=== PATIENT | male | born 1955 | race Caucasian/White ===

== ENCOUNTER 2020-05-02 05:12 | Emergency (ER) | payer OTHER, SELFPAY ==
[2020-05-02 05:12] VITALS: BP 135/85; PULSE 105; RESP 16; TEMP 36.4; O2SAT 92; BMI 18.8
--- NOTE | 2020-05-02 05:15 | ECG_ITS ---
APPROVED REPORT Exam: Resting ECG HR:100 bpm ECG Measurements Heart Rate 100 AXES QRSd 86 QRS 66 QT 354 T 67 QTc 456 <Conclusion> Accelerated Junctional rhythm Nonspecific ST abnormality Abnormal ECG Electronically signed by : Enrico Kim, 05/04/2020 06:29:41
[2020-05-02 05:18] VITALS: BMI 18.8
--- NOTE | 2020-05-02 05:19 | CT_ITS ---
PROCEDURE: CT HEAD/BRAIN WO CON CLINICAL INDICATION: unable to move lower extremities Unable to walk, unable to use lower extremities COMPARISON: No exams were available for comparison TECHNIQUE: Axial images obtained. All CT scans at the facility use one or more dose reduction, viz: automated exposure control, ma/kV adjustment per patient size (including targeted exams where dose is matched to indication, i.e. head), or iterative reconstruction technique. FINDINGS: No midline shift, mass effect, intracranial hemorrhage, hydrocephalus, or extra-axial fluid collection is evident. The calvarium has an unremarkable appearance. 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 No sinus air-fluid level. IMPRESSION: No acute intracranial finding Dictated by: Abdi Ospina MD 05/02/2020 06:20 Abdi Ospina MD in [facility] 05/02/2020 06:20
--- NOTE | 2020-05-02 05:24 | CT_ITS ---
PROCEDURE: CT CERVICAL SPINE WO CON CLINICAL INDICATION: BLE WEAKNESS,ABSENT RECTAL TONE Right upper lobe mass, bilateral lower extremity weakness COMPARISON: No exams were available for comparison TECHNIQUE: Axial images obtained with sagittal and coronal reformats. All CT scans at the facility use one or more dose reduction, viz: automated exposure control, ma/kV adjustment per patient size (including targeted exams where dose is matched to indication, i.e. head), or iterative reconstruction technique. Axial spiral CT scanning performed of the cervical spine beginning at the base of the skull and continuing to the upper T-spine. 3-D multiplanar reconstruction with 3-D manipulation of volumetric data set in image rendering was completed by the radiologist and/or technologist with the supervision of the radiologist on independent workstation. FINDINGS: There is generalized osteopenia. There is normal alignment of the cervical spine with no fracture or dislocation evident. There is degenerative disc disease at C5-C6 with narrowing of the canal at this level at 10 mm. There is mild right foraminal narrowing at this region with mild endplate osteophytes posteriorly. IMPRESSION: Degenerative changes, no acute finding of the cervical spine. Dictated by: Abdi Ospina MD 05/02/2020 06:37 Abdi Ospina MD in [facility] 05/02/2020 06:37
--- NOTE | 2020-05-02 05:24 | CT_ITS ---
PROCEDURE: CT LUMBAR SPINE WO CON CLINICAL HISTORY: BLE WEAKNESS,ABSENT RECTAL TONE COMPARISON: No exams were available for comparison TECHNIQUE: Axial images obtained with sagittal and coronal reformats. All CT scans at the facility use one or more dose reduction, viz: automated exposure control, ma/kV adjustment per patient size (including targeted exams where dose is matched to indication, i.e. head), or iterative reconstruction technique. FINDINGS: Normal alignment. No fracture or dislocation. No lytic or blastic change. There is mild bulging disc at L3-L4 L4-5 and L5-S1. There is a small sclerotic focus of the right is scan possibly due to a bone island. Small anterior osteophytes are present at L1-L2. Incidental note is made of bilateral hydronephrosis and hydroureter. Nonobstructing renal calculi are present on the right along with some milk of calcium suspected in the right renal collecting system or cyst. Urinary bladder is distended with multiple diverticula. There is mild thickening of the rectosigmoid region. There is a calcification along the left aspect of the urinary bladder which measures 6 mm and may be due to stone within a diverticulum. IMPRESSION: 1. No acute lumbar finding. There is mild lumbar spondylosis with bulging disc as described above. 2. Severe bilateral hydroureteronephrosis with distended urinary bladder with multiple bladder diverticula, left bladder stone, right nephrolithiasis Dictated by: Abdi Ospina MD 05/02/2020 06:49 Abdi Ospina MD in [facility] 05/02/2020 06:49
--- NOTE | 2020-05-02 05:24 | CT_ITS ---
PROCEDURE: CT THORACIC SPINE WO CON CLINICAL HISTORY: BLE WEAKNESS,ABSENT RECTAL TONE Right upper lobe mass COMPARISON: CT CT CERVICAL SPINE WO CON from 05/02/2020 TECHNIQUE: Axial images obtained with sagittal and coronal reformats. All CT scans at the facility use one or more dose reduction, viz: automated exposure control, ma/kV adjustment per patient size (including targeted exams where dose is matched to indication, i.e. head), or iterative reconstruction technique. FINDINGS: There is a large right upper lobe mass as described on the chest CT of the same day. The mass is involving and causing destruction of the rights aspect of the T2 and T3 vertebral bodies also causing destruction of the pedicle of T2 on the right and right sided facets and lamina extending into the base of the spinous process of T2 also is destruction of the right aspect and lamina and pedicle of C3. There is destruction of the posterior and medial aspect of the right 3rd rib. Soft tissue mass does appear to extend into the epidural space on the right. The exact degree of extension cannot be adequately evaluated without IV contrast. Pathologic compression fracture involves T2 and T3 with loss of height anteriorly of approximately 50 percent. There is mild kyphosis at this level. The remaining vertebral have an unremarkable appearance aside from generalized osteopenia. There are 13 sets of ribs. Soft tissue mass extends into the posterior paraspinal soft tissues and subscapular region IMPRESSION: Right upper lobe mass causing destruction of the right lateral aspect of T2 and T3 with epidural extension. Recommend either repeat exam with contrast or preferably MRI for more thorough evaluation and to the to determine the degree of epidural extension. There is also destruction of the right 3rd rib. The soft tissue mass extends into the posterior paraspinal soft tissues and subscapular region. Dictated by: Abdi Ospina MD 05/02/2020 06:45 Abdi Ospina MD in [facility] 05/02/2020 06:45
--- NOTE | 2020-05-02 05:25 | PC.NURSE ---
MoiRN and myself went to assess pt rectal tone. PT advises he cannot feel us touching his bottom and it appears pt has no tone. notified
--- NOTE | 2020-05-02 05:27 | PC.NURSE ---
PT going to CT. EULOGIO Chatterjee going with pt
[2020-05-02 05:34] LABS: Basophils # 0.1 K/mm3 (0-0.2); Basophils % 0.6 % (0.1-2.0); Eosinophils # 0.1 K/mm3 (0.0-0.4); Eosinophils % 1.1 % (0.1-12.0); Hematocrit 28.9 % (42.0-52.0); Hemoglobin 8.7 g/dL (14.1-18.0); Lymphocytes # 1.3 K/mm3 (0.7-4.5); Lymphocytes % 14.6 % (10-50); Mean Corpuscular HGB Conc 29.9 g/dL (31.8-35.4); Mean Corpuscular Hemoglobin 20.3 pg (27.0-31.2); Mean Corpuscular Volume 67.9 fl (80-94); Mean Platelet Volume 7.8 fl (7.4-10.4); Monocytes # 0.3 K/mm3 (0.1-1.0); Monocytes % 3.3 % (1.7-9.3); Neutrophils % 80.4 % (37.0-80.0); Platelet Count 479 K/mm3 (142-424); Red Blood Count 4.26 M/mm3 (4.60-6.20); Red Cell Distribution Width 17.4 % (11.5-17.5); White Blood Count 8.7 K/mm3 (4.8-10.8)
[2020-05-02 05:36] LABS: Chloride 105 mmol/L (98-107); Potassium 4.3 mmoL/L (3.5-5.1); Sodium 138 mmol/L (136-145)
[2020-05-02 05:39] LABS: Alanine Aminotransferase 10 U/L (12-78); Albumin Level 3.4 g/dl (3.5-5.0); Albumin/Globulin Ratio 0.8 (1.1-1.8); Alkaline Phosphatase 147 U/L (38-126); Anion Gap 10.3 mEq/L (5-15); Aspartate Amino Transferase 33 U/L (17-59); Bilirubin,Total 0.3 mg/dl (0.2-1.3); Blood Urea Nitrogen 25 mg/dl (9-20); Calcium 10.2 mg/dl (8.4-10.2); Carbon Dioxide 27 mmol/L (22.0-30.0); Creatinine Clearance Estimated 58 mL/min (50-200); Estimated Glomerular Filt Rate 75 ml/min (>60); GFR (African American) 91 ML/MIN (>60); Globulin 4.5 g/dL (1.3-3.2); Glucose 110 mg/dl (74-100); Total Protein,Serum 7.9 g/dl (6.3-8.2)
--- NOTE | 2020-05-02 05:44 | CT_ITS ---
PROCEDURE: CT CHEST WO CON CLINICAL INDICATION: HEMIPLEGIA/SHORTNESS OF AIR Shortness of breath, former smoker, unable to use or fill legs. COMPARISON: CT CT THORACIC SPINE WO CON from 05/02/2020 TECHNIQUE: Axial images obtained with sagittal and coronal reformats. All CT scans at the facility use one or more dose reduction, viz: automated exposure control, ma/kV adjustment per patient size (including targeted exams where dose is matched to indication, i.e. head), or iterative reconstruction technique. FINDINGS: There are no previous exams available for comparison. There is a large right upper lobe mass measuring 14 cm cephalad caudad, 9.7 cm transverse, and 11 cm AP. This mass extends into and through the chest wall into the surrounding soft tissues in the right apex into the posterior paraspinal muscles and subscapular region and is causing destruction of the right lateral aspect of T2 and T3 vertebral bodies greater cyst at the T2 area. It is difficult to determine the amount of epidural extension without IV contrast however this is highly suspected. There is destruction of the right lateral aspect of vertebral body at T2 and destruction of the pedicle and lamina on the right at T2 extending into the spinous process with also destruction of the right lateral aspect of T3 vertebral body in the medial aspect of the right 3rd rib. There is wedge compression changes of T2 and T3 without obvious retropulsion. At the T2-T3 level, the mass extends posteriorly into the paraspinal soft tissues and subscapular region. Epidural extension of the mass is strongly suspected but not well delineated without IV contrast. There is destruction of the right 3rd rib medially and posteriorly The mass extends into the upper aspect of the mediastinum and hilum on the right. There is mediastinal adenopathy. Coronary artery calcifications are present. There is COPD with centrilobular emphysema and peripheral consolidation in the right upper lobe which may be due to postobstructive pneumonia. There is a 4 mm noncalcified nodule superior segment of the right lower lobe and a 3 mm nodule in the right lower lobe as well as an 8 mm right lower lobe nodule posteriorly. 4 mm nodules present in the left lower lobe posteriorly. There is mild diffuse bronchial thickening. It 5 mm left lower lobe nodule. There is some left apical fibrotic change. IMPRESSION: 1. Large right apical mass with extension into the surrounding soft tissues in the right paraspinal region with destruction of the right lateral aspect of T2 and T3 and destruction of the right 3rd rib medially. There is likely epidural extension of the mass but not well evaluated without IV contrast. This is consistent with neoplasm. There is extension also into the right hilar region and mediastinum. There are post obstructive changes in the right upper lobe. 2. Multiple small bilateral pulmonary nodules consistent with metastatic disease Dictated by: Abdi Ospina MD 05/02/2020 06:34 Abdi Ospina MD in [facility] 05/02/2020 06:34
--- NOTE | 2020-05-02 05:52 | XR_ITS ---
PROCEDURE: XR CHEST AP CLINICAL HISTORY: unable to move legs Cough, former smoker COMPARISON: CT CT CHEST WO CON from 05/02/2020 FINDINGS: There is a large right upper lobe mass causing destruction of the right 3rd rib as well as the right T2 and T3 vertebral body laterally. Postobstructive pneumonitis is present in the right upper lobe inferiorly and laterally. Unremarkable cardiovascular structures. No obvious effusion. There is some minimal right basilar atelectasis. IMPRESSION: Large right upper lobe mass with destruction of the right 3rd rib as well as the right aspect of T2 and T3 vertebral body consistent with neoplasm Dictated by: Abdi Ospina MD 05/02/2020 07:35 Abdi Ospina MD in [facility] 05/02/2020 07:35
[2020-05-02 05:57] LABS: Troponin I < 0.01 ng/ml (0.00-0.034)
--- NOTE | 2020-05-02 06:05 | PC.NURSE ---
Unable to place catheter. MD at bedside and aware
[2020-05-02 06:06] VITALS: BP 112/77; PULSE 91; RESP 16; O2SAT 95
--- NOTE | 2020-05-02 06:07 | PC.NURSE ---
PT placed on O2 nasal cannula @ 2lpm
--- NOTE | 2020-05-02 06:08 | [facility].EDNEU ---
ED Disposition Clinical Impression: Anterior cord syndrome, Mass of right lung Thoracic compression fracture Qualifiers: Encounter type: initial encounter Thoracic vertebra fracture level: T4 Qualified Code(s): S22.040A - Wedge compression fracture of fourth thoracic vertebra, initial encounter for closed fracture Disposition: Xfer Short-Term Hosp Condition on Discharge: Critical Referrals: PCP,No [Primary Care Provider] - - Critical Care Critical Care Time: Yes Attestation: On 05/02/20, the high probability of a clinically significant, sudden or life threatening deterioration of the following system(s) required my full and direct attention, intervention and personal management. The time I documented below is in addition to time spent performing reported procedures but includes the following listed in this critical care notation. Total Critical Care Time: 60 Vital system(s) involved:: Central Nervous System My critical care processes included: Assessment & monitoring of V/S, Initial and Re-exams, Data Review/Interpretation, Coordinating Care, Medication Orders and management Medical Decision Making - Medical Records Medical records reviewed: Yes: I reviewed the patient's medical records. - Drake Inquiry Pt receiving controlled substance: No Vital Signs: 05/02/20 05:12 05/02/20 06:06 05/02/20 06:38 Temperature 97.6 F Temperature Source Oral Pulse Rate [Right] 105 H 91 H 89 Respiratory Rate 16 16 16 Blood Pressure [Right Arm] 135/85 112/77 98/73 L Blood Pressure Mean [Right Arm] 101 88 81 Blood Pressure Source [Right Arm] Automatic Cuff Automatic Cuff Automatic Cuff Blood Pressure Position [Right Arm] Sitting Sitting Sitting 02 Sat by Pulse Oximetry 92 L 95 95 Oxygen Delivery Method Room Air Nasal Cannula Room Air Oxygen Flow Rate (LPM) 2 05/02/20 06:48 Temperature Temperature Source Pulse Rate [Right] 86 Respiratory Rate 16 Blood Pressure [Right Arm] 100/72 L Blood Pressure Mean [Right Arm] 81 Blood Pressure Source [Right Arm] Manual Cuff/ Auscultation Blood Pressure Position [Right Arm] 02 Sat by Pulse Oximetry 95 Oxygen Delivery Method Oxygen Flow Rate (LPM) - Lab Data Lab results reviewed: Yes: I reviewed the patient's lab results. Lab Results 05/02/20 05:21: WBC 8.7, RBC 4.26 L, Hgb 8.7 L, Hct 28.9 L, MCV 67.9 L, MCH 20.3 L, MCHC 29.9 L, RDW 17.4, Plt Count 479 H, MPV 7.8, Neut % (Auto) 80.4 H, Lymph % (Auto) 14.6, Emanuel % (Auto) 3.3, Eos % (Auto) 1.1, Baso % (Auto) 0.6, Neut # (Auto) 7.0, Lymph # (Auto) 1.3, Emanuel # (Auto) 0.3, Eos # (Auto) 0.1, Baso # (Auto) 0.1 05/02/20 05:21: Sodium 138, Potassium 4.3, Chloride 105, Carbon Dioxide 27, Anion Gap 10.3, BUN 25 H, Creatinine 1.00, Estimated Creat Clear 58, Estimated GFR 75, Est GFR ( Amer) 91, Glucose 110 H, Calcium 10.2, Total Bilirubin 0.3, AST 33, ALT 10 L, Alkaline Phosphatase 147 H, Troponin I < 0.01, Total Protein 7.9, Albumin 3.4 L, Globulin 4.5 H, Albumin/Globulin Ratio 0.8 L 05/02/20 07:10: Urine Color Yellow, Urine Appearance Cloudy, Urine pH 7.0, Ur Specific [place] 1.025, Urine Protein 1+, Urine Glucose (UA) Negative, Urine Ketones Negative, Urine Blood 2+, Urine Nitrate Positive, Urine Bilirubin Negative, Urine Urobilinogen 0.2, Ur Leukocyte Esterase 2+ A, Urine RBC 5-10, Urine WBC Tntc, Ur Squamous Epith Cells 3-5, Urine Bacteria 4+ Result diagrams: 05/02/20 05:21 05/02/20 05:21 Orders (Tests/Meds): ORDERS Category Date Time Status Troponin I Q3H Lab 05/02/20 08:30 Ordered Troponin I Q3H Lab 05/02/20 11:30 Ordered Urine Culture Stat Micro 05/02/20 07:10 Received - Radiology Data #1 Image(s): Chest Image Reviewed: Yes I reviewed the patient's radiology image Preliminary Findings: Abnormal (rt upper lung mass) - CT Data CT Scan: Head, C-Spine, T-Spine, L-Spine Time Received: 07:[address] Reviewed: Yes: I have viewed the radiologist's interpretation Preliminary Findings: Abnormal (see repor
[2020-05-02 06:38] VITALS: BP 98/73; PULSE 89; RESP 16; O2SAT 95
[2020-05-02 06:48] VITALS: BP 100/72; PULSE 86; RESP 16; O2SAT 95
--- NOTE | 2020-05-02 06:51 | PC.NURSE ---
speaking [facility]
--- NOTE | 2020-05-02 06:58 | PC.NURSE ---
speaking with Dr. Santiago
--- NOTE | 2020-05-02 07:05 | PC.NURSE ---
Notified Roque of transfer
[2020-05-02 07:21] LABS: Microscopic, Urine URINE MICROSCOPIC (MICROSCOPIC)
[2020-05-02 07:23] LABS: Appearance,Urine CLOUDY (Clear); Bilirubin,Urine Negative (Negative); Blood, Urine 2+ (Negative); Color,Urine YELLOW (Yellow); Glucose,Urine (UA) Negative (Negative); Ketones,Urine Negative (Negative); Leukocyte Esterase,Urine 2+ (Negative); Nitrate,Urine POSITIVE (Negative); Protein,Urine 1+ (Negative); Specific Gravity, Urine 1.025 (1.005-1.030); Urobilinogen,Urine 0.2 EU/dl (0.2)
[2020-05-02 07:39] LABS: Bacteria,Urine 4+ /lpf; WBC,Urine TNTC #/hpf (0-3)
--- NOTE | 2020-05-02 07:55 | PC.NURSE ---
AWARE OF LAB VALUES NO NEW ORDERS NOTED
[2020-05-02 08:24] VITALS: BP 88/58; PULSE 86
--- NOTE | 2020-05-02 08:24 | PC.NURSE ---
REPORT CALLED TO [facility] ARMANDO KRISHNAN
[2020-05-02 08:31] VITALS: BP 88/58; PULSE 89; RESP 18; TEMP 36.6; O2SAT 98
== END 2020-05-02 08:33 | disposition short-term general hospital (02) ==
PROVIDERS: Emergency Provider Emergency Medicine
DX: S22.040A Wedge compression fracture of fourth thoracic vertebra, initial encounter for closed fracture (principal); R91.8 Other nonspecific abnormal finding of lung field; G83.82 Anterior cord syndrome; Z87.891 Personal history of nicotine dependence
CPT/HCPCS: 70450; 71045; 71250; 72125; 72128; 72131; 80053; 81001; 84484; 85025; 87086; 87088; 87186; 93005; 99285